=== PATIENT | female | born 2000 | race Asian ===

== ENCOUNTER 2018-08-01 13:20 | Emergency (ER) | payer BC ==
[2018-08-01 13:39] VITALS: BP 130/69
--- NOTE | 2018-08-01 13:41 | UC ---
Abdominal Pain Female HPI - HPI Summary HPI Summary: 18 yo female presents with pelvic pain. She tells me that about 1 month ago she had an IUD placed (this is her first IUD). Since that time has been having pelvic pain that she describes as cramping and achy. Over the last 2-3 days has had worsening pain. She is a student at [employer] and went to [facility] and they told her to come here for an Ultrasound - she did not have an exam. About 1 week ago she did have dysuria and urinary frequency, but her symptoms have since resolved. Also notes some increased vaginal discharge. She denies fever, chills, n/v/d/c, flank pain, vaginal bleeding. - History of Current Complaint Chief Complaint: UCAbdominalPain Stated Complaint: ABDOMINAL PAIN Hx Obtained From: Patient Onset/Duration: Gradual Onset Severity Initially: Severe Severity Currently: Severe Pain Intensity: 7 Pain Scale Used: 0-10 Numeric Allergies/Adverse Reactions: Allergies Allergy/AdvReac Type Severity Reaction Status Date / Time No Known Allergies Allergy Verified 08/01/18 13:39 Home Medications: Home Medications Cholecalciferol (Vitamin D3) [Vitamin D3] 10,000 unit PO 08/01/18 [History] Naproxen Sodium [Aleve] 440 mg PO 08/01/18 [History] PMH/Surg Hx/FS Hx/Imm Hx - Additional Past Medical History Additional PMH: Vitamin D def - Surgical History Surgical History: None - Family History Known Family History: Positive: None - Social History Occupation: Student Lives: Dormitory/Roommates Alcohol Use: Weekly Substance Use Type: None Smoking Status (MU): Never Smoked Tobacco Review of Systems Constitutional: Negative Skin: Negative Respiratory: Negative Cardiovascular: Negative Gastrointestinal: Negative Genitourinary: Vaginal/Penile Pain Motor: Negative Neurovascular: Negative Psychological: Negative All Other Systems Reviewed And Are Negative: Yes Physical Exam - Summary Physical Exam Summary: GENERAL: NAD. WDWN. No pain distress. SKIN: No rashes, sores, lesions, or open wounds. NECK: Supple. Nontender. No lymphadenopathy. CHEST: CTAB. No r/r/w. No accessory muscle use. Breathing comfortably and in no distress. CV: RRR. Without m/r/g. Pulses intact. Cap refill <2seconds ABDOMEN: Soft. NTTP. No distention or guarding. No CVA tenderness. Bowel sounds present NEURO: Alert. PSYCH: Age appropriate behavior. Triage Information Reviewed: Yes Vital Signs: Initial Vital Signs Temp 97.9 F 08/01/18 13:33 Pulse 71 08/01/18 13:33 Resp 18 08/01/18 13:33 BP 130/69 08/01/18 13:33 Pulse Ox 97 08/01/18 13:33 Laboratory Tests 08/01/18 14:18 POC Urine Color Dark yellow POC Urine Clarity Cloudy POC Urine pH 7.0 POC Ur Specif [place] 1.025 POC Urine Protein 1+ A POC Ur Glucose (UA) Negative POC Urine Ketones Negative POC Urine Blood 3+ A POC Urine Nitrite Positive A POC Urine Bilirubin Negative POC Urine Urobilinogen 0.2 POC U Leukocyte Esteras 1+ A Vital Signs Reviewed: Yes Pelvic Exam: Positive: External Exam Normal, No Cerv. Motion Tender, No Masses, Discharge - Mild thick white, Other - Terese SINGH assisted with exam. Negative: Active Bleeding, Lesions, Tender w/ Cervical Motion, Tender Adnexa, Tender Uterus, Ulcers Abd Pain Female Course/Dx - Course Course Of Treatment: Transvaginal US: IMPRESSION: 1. AN IUD IS NOTED CENTRALLY WITHIN THE ENDOMETRIAL CAVITY TOWARDS THE FUNDUS.. 2. NO SONOGRAPHIC FEATURES OF TORSION. PLEASE NOTE THAT PARTIAL OR INTERMITTENT TORSION. MAY BE SONOGRAPHICALLY NORMAL.. 3. LEFT OVARIAN SIMPLE CYSTS MEASURING UP TO 2.7 CM. Cultures sent for BV/Yeast and urine. Her symptoms could be related to her UTI and/or suspect yeast infection as the IUD seems to be in good position. I had a long discussion with the pt and advised her that we should treat her for her UTI and yeast to see if this improves her discomfort. If this does not, then she should f/u with OBGYN to discuss removal of IUD or further investigation. Pt agreeable to plan. - Differential Dx/Diagnosis Provider Diagnoses: Pelvic pain. UTI. Yeast infection Discharge - Sign-Out/Discharge Documenting (check all that apply): Patient Departure All imaging exams completed and their final reports reviewed: Yes - Discharge Plan Condition: Stable Disposition: HOME Prescriptions: Fluconazole 150 MG (NF) [Diflucan 150 mg (NF)] 150 mg PO ONCE #2 tab Nitrofurantoin Monohyd/M-Cryst [Macrobid 100 mg Capsule] 100 mg PO BID #10 cap Patient Education Materials: Urinary Tract Infection in Women (ED), Yeast Infection (ED) Forms: *School Release Referrals: No Primary Care Phys,NOPCP [Primary Care Provider] - Additional Instructions: If you develop a fever, shortness of breath, chest pain, new or worsening symptoms - please call your PCP or go to the ED. - Billing Disposition and Condition Condition: STABLE Disposition: Home - Attestation Statements Provider Attestation: Per institutional requirements, I have reviewed the chart, however, I was not consulted specifically or made aware of this patient by the midlevel provider. I did not personally evaluate, interact with , or disposition this patient.
--- NOTE | 2018-08-01 14:50 | RAD ---
HISTORY: Pain, status post IUD placement COMPARISONS: None TECHNIQUE: Multiple transverse and longitudinal ultrasound images were obtained of the pelvis using grayscale, color Doppler, and spectral Doppler imaging using the endovaginal transducer. FINDINGS: UTERUS: The uterus measures 6.5 x 4.1 x 5.3 cm. The uterus is normal in shape, size, contour, and echotexture. ENDOMETRIUM: The endometrial stripe is smooth. The endometrium measures 0.9 cm in thickness. An IUD is noted centrally within the endometrial cavity towards the fundus. CUL-DE-SAC: There is no free fluid within the cul-de-sac. RIGHT OVARY: The right ovary measures 2.7 x 1.7 x 1.7 cm. Multiple follicles are noted. Normal arterial and venous waveforms are identifiable within the ovary on spectral Doppler imaging. LEFT OVARY: The left ovary measures 3.6 x 2.1 x 2.8 cm. Multiple follicles are noted, including 2 larger simple follicular cysts of the left ovary measuring up to 2.7 and 1.5 cm in size or slightly. Normal arterial and venous waveforms are identifiable within the ovary on spectral Doppler imaging. BLADDER: The bladder is not well visualized. OTHER: None IMPRESSION: 1. AN IUD IS NOTED CENTRALLY WITHIN THE ENDOMETRIAL CAVITY TOWARDS THE FUNDUS.. 2. NO SONOGRAPHIC FEATURES OF TORSION. PLEASE NOTE THAT PARTIAL OR INTERMITTENT TORSION MAY BE SONOGRAPHICALLY NORMAL.. 3. LEFT OVARIAN SIMPLE CYSTS MEASURING UP TO 2.7 CM.
--- NOTE | 2018-08-02 21:30 | UC ---
- Progress Note Progress Note: + gardnerella / BV will ERX Flagyl 500 mg bid x 7 days please call the pt. with the lab results Discharge - Sign-Out/Discharge Documenting (check all that apply): Patient Departure All imaging exams completed and their final reports reviewed: Yes - Discharge Plan Condition: Stable Disposition: HOME Prescriptions: Fluconazole 150 MG (NF) [Diflucan 150 mg (NF)] 150 mg PO ONCE #2 tab Nitrofurantoin Monohyd/M-Cryst [Macrobid 100 mg Capsule] 100 mg PO BID #10 cap Patient Education Materials: Urinary Tract Infection in Women (ED), Yeast Infection (ED) Forms: *School Release Referrals: No Primary Care Phys,NOPCP [Primary Care Provider] - Additional Instructions: If you develop a fever, shortness of breath, chest pain, new or worsening symptoms - please call your PCP or go to the ED. - Billing Disposition and Condition Condition: STABLE Disposition: Home
--- NOTE | 2018-08-03 08:39 | UC ---
- Progress Note Progress Note: PLS CALL PT AND CONFIRM SHE HAS PICKED UP HER ABX FOR CHLAMYDIA AND BV. NO SEX FOR AT LEAST 7 DAYS. NOTIFY ALL SEXUAL PARTNERS. - RODRÍGUEZ MCCARTNEY MD Discharge - Sign-Out/Discharge Documenting (check all that apply): Patient Departure All imaging exams completed and their final reports reviewed: Yes - Discharge Plan Condition: Stable Disposition: HOME Prescriptions: Azithromycin TAB* [Zithromax TAB (Z-AUNDREA) 250 mg #6 tabs] 1 gm PO DAILY #4 tab Fluconazole 150 MG (NF) [Diflucan 150 mg (NF)] 150 mg PO ONCE #2 tab metroNIDAZOLE [Flagyl] 500 mg PO BID WITH MEALS #14 tablet Nitrofurantoin Monohyd/M-Cryst [Macrobid 100 mg Capsule] 100 mg PO BID #10 cap Patient Education Materials: Urinary Tract Infection in Women (ED), Yeast Infection (ED) Forms: *School Release Referrals: No Primary Care Phys,NOPCP [Primary Care Provider] - Additional Instructions: If you develop a fever, shortness of breath, chest pain, new or worsening symptoms - please call your PCP or go to the ED. - Billing Disposition and Condition Condition: STABLE Disposition: Home
== END 2018-08-01 15:40 | disposition home or self-care (01) ==
LOC: UCEAST 13:20
CPT/HCPCS: 76830; 81003; 87086; 87480; 87491; 87510; 87591; 99202; G0463

== ENCOUNTER 2019-01-24 18:12 | Emergency (ER) | payer BC ==
[2019-01-24 18:38] VITALS: BP 127/54
--- NOTE | 2019-01-24 18:41 | UC ---
Eye Complaint HPI - HPI Summary HPI Summary: 18 yo female presents with stye to left lower eyelid noticed this morning. She has been applying a warm compress. She says it is painful and is wondering if she needs any treatment. Denies eye injury, recent illness, eye trauma, or FB. She does not wear contacts - History of Current Complaint Chief Complaint: UCEye Stated Complaint: EYE IRRITATION Time Seen by Provider: 01/24/19 18:40 Hx Obtained From: Patient Hx Last Menstrual Period: 3 WEEKS AGO Onset/Duration: Sudden Onset Timing: Constant Severity Initially: Mild Severity Currently: Mild Pain Intensity: 2 Pain Scale Used: 0-10 Numeric - Allergies/Home Medications Allergies/Adverse Reactions: Allergies Allergy/AdvReac Type Severity Reaction Status Date / Time No Known Allergies Allergy Verified 01/24/19 18:38 Home Medications: Home Medications Iron 01/24/19 [History] PMH/Surg Hx/FS Hx/Imm Hx - Additional Past Medical History Additional PMH: None - Surgical History Surgical History: None - Family History Known Family History: Positive: None - Social History Occupation: Student Lives: Dormitory/Roommates Alcohol Use: Occasionally Substance Use Type: None Smoking Status (MU): Never Smoked Tobacco Review of Systems All Other Systems Reviewed And Are Negative: Yes Constitutional: Positive: Negative Skin: Positive: Negative Eyes: Positive: Other - lower lid stye ENT: Positive: Negative Respiratory: Positive: Negative Cardiovascular: Positive: Negative Neurovascular: Positive: Negative Neurological: Positive: Negative Psychological: Positive: Negative Physical Exam - Summary Physical Exam Summary: GENERAL: WDWN. No pain distress. SKIN: No rashes, sores, lesions, or open wounds. HEENT: Head: AT/NC Eyes: EOM intact. PERRLA. LEFT EYE: Lower eyelid with central stye and mild edema. TTP. No scleral injection or drainage. NECK: Supple. Nontender. No lymphadenopathy. CHEST: No accessory muscle use. Breathing comfortably and in no distress. CV: Pulses intact. Cap refill <2seconds NEURO: Alert. PSYCH: Age appropriate behavior. Triage Information Reviewed: Yes Vital Signs: Initial Vital Signs Temp 97.5 F 01/24/19 18:34 Pulse 88 01/24/19 18:34 Resp 16 01/24/19 18:34 BP 127/54 01/24/19 18:34 Pulse Ox 99 01/24/19 18:34 Vital Signs Reviewed: Yes Eye Complaint Course/Dx - Course Course Of Treatment: Stye left eye. Manually, I was able to express purulent matter from the stye and edema significantly improved. Pt felt better. Advised to continue warm compress and suspect stye should resolve. - Differential Dx/Diagnosis Provider Diagnosis: Stye Discharge - Sign-Out/Discharge Documenting (check all that apply): Patient Departure All imaging exams completed and their final reports reviewed: No Studies - Discharge Plan Condition: Stable Disposition: HOME Patient Education Materials: Stye (ED) Referrals: No Primary Care Phys,NOPCP [Primary Care Provider] - Additional Instructions: If you develop a fever, shortness of breath, chest pain, new or worsening symptoms - please call your PCP or go to the ED. 1) Apply a warm compress to help your stye drain - this will resolve in a few days - Billing Disposition and Condition Condition: STABLE Disposition: Home
== END 2019-01-24 18:54 | disposition home or self-care (01) ==
LOC: UCEAST 18:12
DX: H00.015 Hordeolum externum left lower eyelid (principal)
CPT/HCPCS: 99211; G0463